=== PATIENT | female | born 1985 | race Hispanic/Latino ===

== ENCOUNTER 2020-01-01 10:33 | Inpatient (IN) | payer BC ==
[~2020-01-01] VITALS: Ht 162.6 cm; Wt 124.7 kg
[2020-01-01 11:20] LABS: APPEARANCE,URINE Cloudy (CLEAR); BILIRUBIN,URINE Negative (NEGATIVE); COLOR,URINE Yellow (YELLOW); GLUCOSE, URINE (UA) Negative (NEGATIVE); KETONES,URINE 40 mg/dL (NEGATIVE); LEUKOCYTE ESTERASE ,URINE Moderate (NEGATIVE); NITRATE,URINE Negative (NEGATIVE); OCCULT BLOOD,URINE Moderate (NEGATIVE); PROTEIN,URINE POS 2+ mg/dL (NEGATIVE)
[2020-01-01] MEDS ORDERED: LACTATED RINGERS 500 ML 500 ML IV PRN (11:30)
[2020-01-01] MEDS ORDERED: NALOXONE HCL 0.4 MG/1 ML ML IV PRN (11:30)
[2020-01-01] MEDS ORDERED: EPHEDRINE SULFATE 50 MG/ML AMPULE IVP PRN (11:30)
[2020-01-01 11:31] LABS: BACTERIA,URINE Few /HPF (None Seen); MUCUS,URINE Few LPF (None Seen); RBC,URINE 0-1 /HPF (0-1); SQUAMOUS EPITHELIAL CELL,UR Few /HPF (0-2); WBC,URINE 51-100 /HPF (0-1)
[2020-01-01] MEDS ORDERED: BUTORPHANOL TARTRATE 2 MG/ML IVP PRN (11:45)
[2020-01-01] MEDS ORDERED: AMPICILLIN 2GM+NS 100ML 100 ML IV ONE (11:45)
[2020-01-01 12:19] LABS: HEMATOCRIT 32.9 % (36-48); MEAN CORPUSCULAR HEMOGLOBIN 29.7 pg (27.0-33.0); MEAN CORPUSCULAR VOLUME 87.3 fL (79-99); RED BLOOD CELL COUNT(AUTO) 3.77 MIL/uL (4.00-5.50); RED CELL DISTRIBUTION WIDTH 13.1 % (11.0-15.5); WHITE BLOOD COUNT (AUTO) 16.9 K/uL (4.8-10.8)
[2020-01-01 12:45] VITALS: BP 95/74
[2020-01-01] MEDS ORDERED: LACTATED RINGERS 1000ML 1,000 ML IV ONE (12:53)
[2020-01-01 12:57] LABS: CREATININE 0.6 mg/dL (0.5-1.5); POTASSIUM 3.6 mmol/L (3.5-5.1)
[2020-01-01 12:59] LABS: BILIRUBIN,TOTAL 0.3 mg/dL (0.2-1.0); TOTAL PROTEIN, SERUM 6.9 g/dL (6.0-8.3); URIC ACID 4.4 mg/dL (2.6-7.2)
[2020-01-01] MEDS ORDERED: AMPICILLIN 2GM+NS 100ML 100 ML IV SCH (13:09)
[2020-01-01 13:14] LABS: INR 0.87 (0.85-1.15)
[2020-01-01] MEDS ORDERED: PREN-154 PO (14:20)
[2020-01-01] MEDS ORDERED: METF-444 PO (14:20)
[2020-01-01] MEDS ORDERED: FERR159T2 PO (14:20)
[2020-01-01] MEDS: AMPICILLIN 1GM+NS 50ML 50 ML IV SCH ×3 (16:02→23:31)
[2020-01-01] MEDS ORDERED: OXYTOCIN-LR 20 UNITS/1000 ML 1,000 ML IV ONE (16:11)
[2020-01-01] MEDS ORDERED: OXYTOCIN-LR 20 UNITS/1000 ML 1,000 ML IV SCH (17:00)
[2020-01-01] MEDS ORDERED: ROPIVACAINE 0.2% 100ML VIAL 100 ML EP SCH (20:30)
[2020-01-01] MEDS ORDERED: LIDOCAINE HCL 1% 20 ML VIAL ONE (22:23)
[2020-01-02] VITALS (7 sets, daily range): BP systolic 116–134; BP diastolic 59–79
[2020-01-02] MEDS ORDERED: BENZOCAINE/LANOLIN/ALOE VERA 60 ML AEROSOL TP PRN (00:30)
[2020-01-02] MEDS ORDERED: LANOLIN 30GM OINTMENT TP PRN (00:30)
[2020-01-02] MEDS ORDERED: ACETAMINOPHEN 325 MG TAB PO PRN (00:30)
[2020-01-02] MEDS ORDERED: WITCH HAZEL 1 PAD TP PRN (00:30)
[2020-01-02] MEDS: ACETAMINOPHEN-CODEINE 300/30MG TAB PO PRN ×4 (01:10→20:53)
--- NOTE | 2020-01-02 01:55 | NUR ---
Patient received from Labor and delivery; Patient came in via wheelchair accompanied by Mac Jha, XIOMARA, Guzman Degroot RN and her . She has an IV of LR with 20 units Pitocin regulated at 125 ml/hour. Patient and oriented to the room, call light given. Plan of care discussed with patient both verbalizes understanding.
[2020-01-02] MEDS: AMPICILLIN 1GM+NS 50ML 50 ML IV SCH ×3 (03:30→23:30)
[2020-01-02 08:13] LABS: HEPATITIS Bs ANTIGEN SCREEN P Negative (Negative)
[2020-01-02] MEDS: DOCUSATE SODIUM 100 MG CAP PO SCH ×2 (09:05→20:18)
[2020-01-02] MEDS: LACTATED RINGERS 1000ML 1,000 ML IV PRN ×2 (18:00→18:42)
[2020-01-03] MEDS: AMPICILLIN 1GM+NS 50ML 50 ML IV SCH ×2 (03:30→07:30)
[2020-01-03] MEDS: LACTATED RINGERS 1000ML 1,000 ML IV PRN (03:55)
[2020-01-03 03:56] VITALS: BP 122/72
[2020-01-03] MEDS: DOCUSATE SODIUM 100 MG CAP PO SCH (08:20)
[2020-01-03 10:37] VITALS: BP 141/68
--- NOTE | 2020-01-03 17:40 | NUR ---
DISCHARGE PT LEFT UNIT VIA WHEELCHAIR, WITH BABY IN ARMS, ACCOMPANIED BY SIGNIFICANT OTHER. DENIED PAIN AND HAD NO COMPLAINTS. BABY STRAPPED IN CAR SEAT. PT AND BABY TRANSPORTED BY PERSONAL VEHICLE.
== END 2020-01-03 17:40 | disposition home or self-care (01) | DRG 806 ==
LOC: EDH 10:33 → LDH 10:34 → OBSVTOIN 10:34 → WSH 01-02 01:55
PROVIDERS: ADMIT Obstetrics & Gynecology; ATTEND Obstetrics & Gynecology
PROC: 10E0XZZ Delivery of Products of Conception, External Approach (ICD-10-PCS; principal; 2020-01-03)
PROC: 0KQM0ZZ Repair Perineum Muscle, Open Approach (ICD-10-PCS; 2020-01-03)
PROC: 0UQMXZZ Repair Vulva, External Approach (ICD-10-PCS; 2020-01-03)
PROC: 3E0R3BZ Introduction of Anesthetic Agent into Spinal Canal, Percutaneous Approach (ICD-10-PCS; 2020-01-03)
PROC: 00HU33Z Insertion of Infusion Device into Spinal Canal, Percutaneous Approach (ICD-10-PCS; 2020-01-03)
DX: O69.81X0 Labor and delivery complicated by cord around neck, without compression, not applicable or unspecified (principal); O86.20 Urinary tract infection following delivery, unspecified; Z37.0 Single live birth; O99.824 Streptococcus B carrier state complicating childbirth; O14.94 Unspecified pre-eclampsia, complicating childbirth; O70.1 Second degree perineal laceration during delivery; O71.82 Other specified trauma to perineum and vulva; Z3A.40 40 weeks gestation of pregnancy; Z88.8 Allergy status to other drugs, medicaments and biological substances
CPT/HCPCS: 36415; 80053; 81001; 84550; 85027; 85384; 85610; 85730; 86592; 86850; 86900; 86901; 87077; 87088; 87186; 87340; A4314; A4351; G0378; J0290; J2590; J7120